=== PATIENT | male | born 1970 | race Caucasian/White ===

== ENCOUNTER 2016-11-15 13:28 | Emergency (ER) | payer OTHER ==
[2016-11-15 13:33] VITALS: BP 144/107; PULSE 103; TEMP 98.4; BMI 31.6
--- NOTE | 2016-11-15 14:09 | PDOC ---
History of Present Illness - General Chief Complaint: Ear Problem Stated Complaint: EAR PAIN Time Seen by Provider: 11/15/16 13:40 History Source: Patient Exam Limitations: No Limitations - History of Present Illness Initial Comments: 11/15/16 14:11 CHIEF COMPLAINT: Buzzing to right ear for 1 week HISTORY OF PRESENT ILLNESS: Patient is an otherwise healthy 46-year-old male with history of traumatic right BKA. Patient reports buzzing to right ear for 1 week denies any pain, no discharge, no dizziness, no visual disturbance. No fever. Past History - Past Medical History Allergies/Adverse Reactions: Allergies Allergy/AdvReac Type Severity Reaction Status Date / Time No Known Allergies Allergy Verified 11/15/16 13:33 Home Medications: Ambulatory Orders NK [No Known Home Medication] 11/15/16 - Psycho/Social/Smoking Cessation Hx Anxiety: No Suicidal Ideation: No Smoking History: Former smoker Have you smoked in the past 12 months: No If you are a former smoker, when did you quit?: 6 YRS AGO Information on smoking cessation initiated: No Hx Alcohol Use: No Drug/Substance Use Hx: No Substance Use Type: None Review of Systems - Review of Systems HEENTM: Yes: Other (buzzing to right ear) Respiratory: No: Symptoms reported Cardiac (ROS): No: Symptoms Reported ABD/GI: No: Symptoms Reported Musculoskeletal: No: Symptoms Reported Integumentary: No: Symptoms Reported Hematologic/Lymphatic: No: Symptoms Reported All Other Systems: Reviewed and Negative *Physical Exam - Vital Signs Last Vital Signs Temp Pulse Resp BP Pulse Ox 98.4 F 103 H 20 144/107 99 11/15/16 13:29 11/15/16 13:29 11/15/16 13:29 11/15/16 13:29 11/15/16 13:29 - Physical Exam General Appearance: Yes: Appropriately Dressed. No: Apparent Distress HEENT: positive: WILLI, Normal Voice, Symmetrical. negative: TMs Normal ( cerumen impaction to right ear), Muffled/Hoarse voice, Pharyngeal Erythema, Tonsillar Exudate, Tonsillar Erythema, TM Bulging, TM Dull, TM Erythema Neck: positive: Trachea midline. negative: Tender, Tender lateral, Tender midline Respiratory/Chest: positive: Lungs Clear, Normal Breath Sounds Cardiovascular: positive: Regular Rhythm, Regular Rate Lymphatic: negative: Adenopathy Integumentary: positive: Normal Color, Dry. negative: Erythema Neurologic: positive: Fully Oriented, Alert, Normal Mood/Affect Medical Decision Making - Medical Decision Making 11/15/16 14:21 A/P: Patient here for evaluation of buzzing to right ear, patient with cerumen impaction irrigated with normal saline and TM was able to be visualized after large amount of wax was removed, To follow up with ENT *DC/Admit/Observation/Transfer Diagnosis at time of Disposition: Impacted cerumen, right ear - Discharge Dispostion Disposition: HOME Condition at time of disposition: Good Admit: No - Referrals Referrals: Wallace Juares MD [Staff Physician] - - Patient Instructions Additional Instructions: Do not place anything in ER for any increased pain, drainage, or any other concerns return to ER
== END 2016-11-15 14:11 | disposition home or self-care (01) ==
LOC: JERFT 13:28
PROC: 3E1B78Z Irrigation of Ear using Irrigating Substance, Via Natural or Artificial Opening (ICD-10-PCS; principal; 2016-11-15)
DX: H61.21 Impacted cerumen, right ear (principal)
CPT/HCPCS: 99281-25

== ENCOUNTER 2016-11-21 07:02 | Emergency (ER) | payer OTHER ==
[2016-11-21 07:18] VITALS: BP 146/99; PULSE 100; TEMP 98.4; BMI 31.6
[2016-11-21] MEDS ORDERED: IBUPROFEN 400 MG TABLET (FP) PO ONE ×2 (08:08→08:21)
--- NOTE | 2016-11-21 08:20 | PDOC ---
History of Present Illness - General History Source: Patient Exam Limitations: No Limitations - History of Present Illness Initial Comments: 11/21/16 08:15 46M with history of traumatic BKA and HTN here today complaining of ear pain, right more than left. He says the pain has been going on for awhile, but got acutely worse in the past 24 hours. He was seen here on 11/15. A large amount of earwax was removed from the right ear in this visit and he was given ENT follow up. However, he did not receive any prescriptions for antibiotics or see ENT yet. He reports that he's been scratching at his ear with q-tips. He denies any constitutional symptoms including nausea, vomiting, fevers, and chills. He denies recent illness, including cough, shortness of breath, runny nose and chest pain. <Carlos Lewis - Last Filed: 11/21/16 08:29> <Oscar Kyle - Last Filed: 11/21/16 08:36> - General Chief Complaint: Ear Problem Stated Complaint: EAR PAIN Time Seen by Provider: 11/21/16 07:47 Past History - Past Medical History Other medical history: none - Suicide/Smoking/Psychosocial Hx Smoking History: Never smoked Have you smoked in the past 12 months: No If you are a former smoker, when did you quit?: 6 YRS AGO Information on smoking cessation initiated: No Hx Alcohol Use: No Drug/Substance Use Hx: No Substance Use Type: None <Carlos Lewis - Last Filed: 11/21/16 08:29> <Oscar Kyle - Last Filed: 11/21/16 08:36> - Past Medical History Allergies/Adverse Reactions: Allergies Allergy/AdvReac Type Severity Reaction Status Date / Time No Known Allergies Allergy Verified 11/21/16 07:07 Home Medications: Ambulatory Orders Amoxicillin/Potassium Clav [Augmentin 875-125 Tablet] 1 each PO BID #14 tablet 11/21/16 Ciprofloxacin HCl/Dexameth [Ciprodex Otic Suspension] 4 drop AU BID #1 bottle Review of Systems - Review of Systems Comments:: 11/21/16 08:19 GENERAL/CONSTITUTIONAL: No fever or chills. No weakness. HEAD, EYES, EARS, NOSE AND THROAT: No change in vision. Positive for ear pain, right more than left. No ear discharge. No sore throat. CARDIOVASCULAR: No chest pain or shortness of breath RESPIRATORY: No cough, wheezing, or hemoptysis. GASTROINTESTINAL: No nausea, vomiting, diarrhea or constipation. GENITOURINARY: No dysuria, frequency, or change in urination. MUSCULOSKELETAL: No joint or muscle swelling or pain. No neck or back pain. NEUROLOGIC: No headache, loss of consciousness, or change in strength/sensation. HEMATOLOGIC/LYMPHATIC: No anemia, easy bleeding, or history of blood clots. ALLERGIC/IMMUNOLOGIC: No hives or skin allergy. <Carlos Lewis - Last Filed: 11/21/16 08:29> *Physical Exam - Vital Signs Last Vital Signs Temp Pulse Resp BP Pulse Ox 98.4 F 100 H 18 146/99 100 11/21/16 07:09 11/21/16 07:09 11/21/16 07:09 11/21/16 07:09 11/21/16 07:09 - Physical Exam Comments: 11/21/16 08:20 GENERAL: Awake, alert, and fully oriented, in no acute distress HEAD: No signs of trauma, normocephalic, atraumatic EYES: PERRLA, EOMI, sclera anicteric, conjunctiva clear ENT: Auricles normal inspection, hearing grossly normal, nares patent, oropharynx clear without exudates. Moist mucosa. Tender to outer ear movement, surrounding lymphadenopathy on right, ear drum intact with ear canal inflammation bilaterally LUNGS: No distress, speaks full sentences, clear to auscultation bilaterally HEART: Regular rate and rhythm, normal S1 and S2, no murmurs, rubs or gallops, peripheral pulses normal and equal bilaterally. ABDOMEN: Soft, nontender, normoactive bowel sounds. No guarding, no rebound. No masses EXTREMITIES: R BKA, Normal range of motion, no edema. No clubbing or cyanosis. NEUROLOGICAL: Cranial nerves II through XII grossly intact. Normal speech, normal gait on crutches, no focal sensorimotor deficits SKIN: Warm, Dry, normal turgor, no rashes or lesions noted. <Carlos Lewis - Last Filed: 11/21/16 08:29> - Vital Signs Last Vital Signs Temp Pulse Resp BP Pulse Ox 98.4 F 100 H 18 146/99 100 11/21/16 07:09 11/21/16 07:09 11/21/16 07:09 11/21/16 07:09 11/21/16 07:09 <Oscar Kyle - Last Filed: 11/21/16 08:36> ED Treatment Course - Medications Given in the ED: ED Medications Discontinued Medications Generic Name Dose Route Start Last Admin Trade Name Shari PRN Reason Stop Dose Admin Ibuprofen 400 mg 11/21/16 08:08 11/21/16 08:24 Motrin - PO 11/21/16 08:09 400 mg ONCE ONE Administration <Oscar Kyle - Last Filed: 11/21/16 08:36> *DC/Admit/Observation/Transfer - Discharge Dispostion Admit: No <Carlos Lewis - Last Filed: 11/21/16 08:29> <Oscar Kyle - Last Filed: 11/21/16 08:36> Diagnosis at time of Disposition: Otitis externa Qualifiers: Otitis externa type: unspecified type Chronicity: acute Laterality: right Qualified Code(s): H60.501 - Unspecified acute noninfective otitis externa, right ear - Discharge Dispostion Disposition: HOME Condition at time of disposition: Good - Prescriptions Prescriptions: Amoxicillin/Potassium Clav [Augmentin 875-125 Tablet] 1 each PO BID #14 tablet Ciprofloxacin HCl/Dexameth [Ciprodex Otic Suspension] 4 drop AU BID #1 bottle - Referrals Referrals: Crispin Hu MD [Primary Care Provider] - - Patient Instructions Printed Discharge Instructions: DI for Otitis Externa Additional Instructions: Activity as tolerated. Stay hydrated. Tylenol 1000 mg every 8 hours and/or ibuprofen 600 mg every 8 hours as needed for pain. Take Augmentin as prescribed, Cipro drops as prescribed. You should follow up with your primary doctor as soon as possible regarding today's emergency department visit. Consider seeing an ENT specialist if symptoms persist, call Dr. Juares for an appointment. Return to the emergency department for any new or concerning symptoms, particularly severe swelling or pain, fevers or chills, dizziness or headache.
--- NOTE | 2016-11-21 08:35 | PDOC ---
Attending Attestation - Resident Resident Name: Carlos Lewis - ED Attending Attestation I have performed the following: I have examined & evaluated the patient, The case was reviewed & discussed with the resident, I agree w/resident's findings & plan, Exceptions are as noted - HPI HPI: 11/21/16 08:30 46y/o M with recent visit for cerumen impaction now p/w worsening R ear pain, inflammation. no f/c/madera/vision change. slight tinnitus, no vertigo. no meningismus - Physicial Exam PE: 11/21/16 08:33 Vital signs normal, heart rate 80 while seated in chair Right middle ear infection with early external otitis, positive postauricular lymphadenopathy on the right, no mastoid ttp or crepitus neck supple BKA - Medical Decision Making 11/21/16 08:34 Patient seen and evaluated with the resident. I agree with the overall evaluation, assessment, and management with the following summary of visit: 46-year-old male with middle/external otitis in the setting of recent canal irritation, otherwise well-appearing and afebrile without evidence of deep tissue infection or [employer] involvement. Course of oral antibiotics and drops ENT follow-up as needed Understands return criteria
== END 2016-11-21 08:41 | disposition home or self-care (01) ==
LOC: JER 07:02
DX: H60.503 Unspecified acute noninfective otitis externa, bilateral (principal)
CPT/HCPCS: 99281-25